=== PATIENT | female | born 1995 ===

== ENCOUNTER 2018-03-28 22:38 | Emergency (ER) | payer SELFPAY ==
[2018-03-28 23:31] VITALS: BP 101/69; PULSE 84; RESP 14; TEMP 98.3; O2SAT 98
[2018-03-29] MEDS ORDERED: Lidocaine Hydrochloride 5 ML INJ ONE (00:03)
[2018-03-29] MEDS ORDERED: cefTRIAXone (Rocephin) 250 mg Inj IM STA (00:26)
--- NOTE | 2018-03-29 00:37 | C.PDOC ---
History Of Present Illness Pt with painful, indurated mas to right buttock x 4 d worse today . Denies drainage, fever. Also requesting treatment for chlamydia -partner tested positive. No vaginal discharge or UTI sx Time Seen by Provider: 03/28/18 23:39 Chief Complaint (Nursing): Abnormal Skin Integrity History Per: Patient History/Exam Limitations: no limitations Quality Of Symptoms: Painful, Swollen Severity: Moderate Past Medical History Vital Signs: Last Vital Signs Temp 98.3 F 03/28/18 23:28 Pulse 84 03/28/18 23:28 Resp 14 03/28/18 23:28 BP 101/69 03/28/18 23:28 Pulse Ox 98 03/28/18 23:28 - Medical History PMH: No Chronic Diseases Family History: States: Unknown Family Hx - Social History Hx Alcohol Use: No Hx Substance Use: Yes - Immunization History Hx Tetanus Toxoid Vaccination: Yes Hx Influenza Vaccination: Yes Hx Pneumococcal Vaccination: Yes Review Of Systems Constitutional: Negative for: Fever Skin: Positive for: Other (painful mass) Physical Exam - Physical Exam Appears: Well, No Acute Distress Skin: Other (3x4 cm tender, indurated mass with fluctuant center) Eye(s): bilateral: Normal Inspection, PERRL Throat: Normal Gait: Steady ED Course And Treatment O2 Sat by Pulse Oximetry: 98 Pulse Ox Interpretation: Normal Progress Note: Follow up and return precautions d/w pt . Wound well drained no ABX indicated however PO doxicycline prescribed for chlamydia exposure. Wound check in 2 days - Incision & Drainage Of Abscess Anesthesia: Lidocaine 1% Prep Used: Betadine Procedure: Incised W/Scalpel Blade#: (11), Drained Pus, Irrigated Cavity W/ Saline, Probed To Break Up Loculations, Packed W/Gauze (pt tolerated well ) Disposition Counseled Patient/Family Regarding: Diagnosis, Need For Followup, Rx Given - Disposition Referrals: [facility] [Outside] Disposition: HOME/ ROUTINE Disposition Time: 00:39 Condition: STABLE Additional Instructions: Return to ER in 2 days for wound check Take meds as directed Return to ER if worse Prescriptions: Doxycycline Hyclate 100 mg PO BID #14 capsule Ibuprofen [Motrin] 600 mg PO Q6H #20 tab Instructions: Abscess Incision and Drainage (DC) - Clinical Impression Clinical Impression: Exposure to STD, Abscess of buttock, right
== END 2018-03-29 00:45 | disposition home or self-care (01) ==
LOC: C.ER 22:38
DX: L02.31 Cutaneous abscess of buttock (principal); Z20.2 Contact with and (suspected) exposure to infections with a predominantly sexual mode of transmission